=== PATIENT | male | born 1990 | race African-American/Black ===

== ENCOUNTER 2017-05-18 10:40 | Emergency (ER) | payer OTHER | END 2017-05-18 14:00 | disposition home or self-care (01) | LOC: FTE 10:40 | DX: Z76.0 Encounter for issue of repeat prescription (principal); J45.909 Unspecified asthma, uncomplicated | CPT/HCPCS: 99281 ==

== ENCOUNTER 2017-06-04 12:24 | Emergency (ER) | payer OTHER | END 2017-06-04 15:11 | disposition home or self-care (01) | LOC: E/R 15:11 | DX: Z76.0 Encounter for issue of repeat prescription (principal); J45.909 Unspecified asthma, uncomplicated | CPT/HCPCS: 99281; Z7502 ==

== ENCOUNTER 2017-06-24 14:17 | Emergency (ER) | payer OTHER ==
[2017-06-24] MEDS: ALBUTEROL 0.083% (NEB) 2.5 MG/3 ML AMP HHN (17:17)
[2017-06-24] MEDS: IPRATROPIUM (NEB) 0.5 MG/2.5 ML AMP HHN (17:18)
== END 2017-06-24 17:58 | disposition home or self-care (01) ==
LOC: FTE 14:17
DX: J45.901 Unspecified asthma with (acute) exacerbation (principal); F17.210 Nicotine dependence, cigarettes, uncomplicated
CPT/HCPCS: 94664; 99284-25

== ENCOUNTER 2017-07-20 04:01 | Emergency (ER) | payer OTHER | END 2017-07-20 05:25 | disposition home or self-care (01) | LOC: FTE 04:01 | DX: Z76.0 Encounter for issue of repeat prescription (principal); J45.909 Unspecified asthma, uncomplicated | CPT/HCPCS: 99281 ==

== ENCOUNTER 2017-08-10 10:32 | Emergency (ER) | payer OTHER | END 2017-08-10 11:01 | disposition home or self-care (01) | LOC: E/R 11:01 → FTE 10:32 | DX: J45.901 Unspecified asthma with (acute) exacerbation (principal) | CPT/HCPCS: 99283; Z7502 ==

== ENCOUNTER 2017-08-23 20:31 | Emergency (ER) | payer OTHER | END 2017-08-23 22:41 | disposition home or self-care (01) | LOC: FTE 22:41 | DX: J45.909 Unspecified asthma, uncomplicated (principal) | CPT/HCPCS: 99281 ==

== ENCOUNTER 2017-09-10 22:52 | Emergency (ER) | payer OTHER ==
[2017-09-11] MEDS: IPRATROPIUM (NEB) 0.5 MG/2.5 ML AMP NEB (01:38)
[2017-09-11] MEDS: ALBUTEROL 0.083% (NEB) 2.5 MG/3 ML AMP NEB (01:38)
[2017-09-11] MEDS: predniSONE 20 MG TAB PO (02:02)
== END 2017-09-11 03:16 | disposition home or self-care (01) ==
LOC: FTE 22:52
DX: N48.1 Balanitis (principal); J45.909 Unspecified asthma, uncomplicated
CPT/HCPCS: 94664; 99284-25

== ENCOUNTER 2017-09-14 05:24 | Emergency (ER) | payer OTHER | END 2017-09-14 06:18 | disposition home or self-care (01) | LOC: FTE 05:24 | DX: Z76.0 Encounter for issue of repeat prescription (principal); J45.909 Unspecified asthma, uncomplicated | CPT/HCPCS: 99281; Z7502 ==

== ENCOUNTER 2017-10-05 07:42 | Emergency (ER) | payer OTHER ==
[2017-10-05] MEDS: SOD CHLORIDE 0.9% 1,000 ML IV (08:48)
[2017-10-05] MEDS: KETOROLAC 30 MG INJ IV (08:48)
[2017-10-05 10:12] LABS: ADD UMIC NO; UR ASCORBIC ACID NEGATIVE (NEGATIVE); UR BILIRUBIN (Dip) NEGATIVE (NEGATIVE); UR BLOOD (Dip) NEGATIVE (NEGATIVE); UR CLARITY CLEAR (CLEAR); UR COLOR STRAW (YELLOW); UR GLUCOSE (Dip) NEGATIVE (NEGATIVE); UR KETONES (Dip) TRACE mg/dL (NEGATIVE); UR LEUKOCYTE ESTERASE (Dip) NEGATIVE Leu/ul (NEGATIVE); UR NITRITE (Dip) NEGATIVE (NEGATIVE); UR SPECIFIC GRAVITY (Dip) 1.006 (1.003-1.030); UR TOTAL PROTEIN (Dip) NEGATIVE (NEGATIVE); UR UROBILINOGEN (Dip) NEGATIVE (NEGATIVE)
== END 2017-10-05 10:47 | disposition home or self-care (01) ==
LOC: FTE 07:42
DX: R42 Dizziness and giddiness (principal); J45.909 Unspecified asthma, uncomplicated
CPT/HCPCS: 36415; 81003; 93005; 96374; 99284-25

== ENCOUNTER 2017-10-25 21:49 | Emergency (ER) | payer OTHER | END 2017-10-25 23:58 | disposition home or self-care (01) | LOC: FTE 21:49 | DX: Z76.0 Encounter for issue of repeat prescription (principal); J45.909 Unspecified asthma, uncomplicated | CPT/HCPCS: 99281; Z7502 ==

== ENCOUNTER 2017-11-15 00:53 | Emergency (ER) | payer OTHER | END 2017-11-15 04:32 | disposition home or self-care (01) | LOC: FTE 00:53 | DX: Z76.0 Encounter for issue of repeat prescription (principal); J45.909 Unspecified asthma, uncomplicated | CPT/HCPCS: 99281 ==

== ENCOUNTER 2017-12-07 18:57 | Emergency (ER) | payer OTHER | END 2017-12-07 19:42 | disposition home or self-care (01) | LOC: E/R 18:57 | DX: J45.909 Unspecified asthma, uncomplicated (principal) | CPT/HCPCS: 99281; Z7502 ==

== ENCOUNTER 2017-12-29 00:28 | Emergency (ER) | payer OTHER | END 2017-12-29 01:50 | disposition home or self-care (01) | LOC: FTE 00:28 | DX: Z76.0 Encounter for issue of repeat prescription (principal); J45.909 Unspecified asthma, uncomplicated | CPT/HCPCS: 99281; Z7502 ==

== ENCOUNTER 2018-01-19 22:23 | Emergency (ER) | payer OTHER ==
[2018-01-20] MEDS: DEXAMETHASONE 10 MG/ML 1 ML INJ IM (00:52)
[2018-01-20] MEDS: IPRATROPIUM (NEB) 0.5 MG/2.5 ML AMP INH (01:00)
[2018-01-20] MEDS: ALBUTEROL 0.5% (NEB) 2.5 MG/0.5 ML AMP INH (01:00)
== END 2018-01-20 02:06 | disposition home or self-care (01) ==
LOC: FTE 22:23
DX: Z76.0 Encounter for issue of repeat prescription (principal); R05 Cough; J45.901 Unspecified asthma with (acute) exacerbation
CPT/HCPCS: 94644; 96372; 99284-25

== ENCOUNTER 2018-03-26 00:01 | Emergency (ER) | payer OTHER | END 2018-03-26 02:45 | disposition home or self-care (01) | LOC: FTE 00:01 | DX: Z76.0 Encounter for issue of repeat prescription (principal); J45.909 Unspecified asthma, uncomplicated | CPT/HCPCS: 99281; Z7502 ==

== ENCOUNTER 2018-05-21 17:06 | Emergency (ER) | payer OTHER | END 2018-05-21 19:20 | disposition home or self-care (01) | LOC: FTE 17:06 | DX: Z76.0 Encounter for issue of repeat prescription (principal); J45.909 Unspecified asthma, uncomplicated | CPT/HCPCS: 99281; Z7502 ==

== ENCOUNTER 2018-10-31 22:41 | Emergency (ER) | payer SELFPAY, OTHER | END 2018-11-01 01:15 | disposition left against medical advice (07) | LOC: FTE 22:41 | DX: Z53.21 Procedure and treatment not carried out due to patient leaving prior to being seen by health care provider (principal) ==

== ENCOUNTER 2019-01-19 23:44 | Emergency (ER) | payer SELFPAY, OTHER | END 2019-01-20 04:08 | disposition left against medical advice (07) | LOC: FTE 23:44 | DX: Z53.21 Procedure and treatment not carried out due to patient leaving prior to being seen by health care provider (principal) ==